=== PATIENT | female | born 1960 | race Caucasian/White ===

== ENCOUNTER 2017-05-07 05:59 | Inpatient (IN) | payer OTHER ==
--- NOTE | 2017-04-30 16:11 | DIAGNOSTIC IMAGING REPORT ---
CHEST 2 VIEWS ROUTINE HISTORY: PREOP COMPARISON: None. FINDINGS: The lungs are clear. Cardiac silhouette is normal in size. No pleural effusions. No pneumothorax. IMPRESSION: No acute process. Electronically signed by: Davon Avealr M.D. 04/30/2017 4:10 PM Dictated Date/Time: 04/30/2017 4:09 PM
[2017-04-30 16:41] LABS: BASO % 0.9 %; BASO ABS # 0.06 K/uL (0-0.2); COMPLETE YES; EOS % 1.2 %; HEMATOCRIT 43.8 % (37-47); IG% 0.4 %; LYMPH % 30.5 %; LYMPH ABS # 2.06 K/uL (1.2-3.4); MEAN CORPUSCULAR HEMOGLOBIN 29.9 pg (25-34); MEAN CORPUSCULAR HGB CONC 33.6 g/dl (32-36); MONO % 8.4 %; NEUT % 58.6 %; PLATELET COUNT 349 K/uL (130-400); RED BLOOD COUNT 4.92 M/uL (4.2-5.4); WHITE BLOOD COUNT 6.76 K/uL (4.8-10.8)
[2017-04-30 16:43] LABS: URINE APPEARANCE CLEAR (CLEAR); URINE BILIRUBIN NEG (NEG); URINE COLOR YELLOW; URINE NITRITE NEG (NEG); URINE PH 5.5 (4.5-7.5); URINE SPECIFIC GRAVITY 1.013 (1.000-1.030); UROBILINOGEN NEG (NEG); ZZUR CULT IF INDIC CLEAN CATCH NO
[2017-04-30 16:56] LABS: MANUAL MICROSCOPIC REQUIRED? NO; REVIEW REQ? NO
[2017-04-30 17:12] LABS: BLOOD UREA NITROGEN 12 mg/dl (7-18); CALCIUM 9.5 mg/dl (8.5-10.1); CARBON DIOXIDE 29 mmol/L (21-32); CHLORIDE 99 mmol/L (98-107); CREATININE 0.64 mg/dl (0.60-1.20); GLUCOSE 92 mg/dl (70-99); POTASSIUM 3.5 mmol/L (3.5-5.1); SODIUM 136 mmol/L (136-145)
[2017-05-05 10:05] VITALS: BMI 33.0
[~2017-05-07] VITALS: Ht 160 cm; Wt 86.4 kg
[2017-05-07] VITALS (17 sets, daily range): BP systolic 118–149; BP diastolic 64–80; PULSE 86–107; TEMP 36.4–37.1; O2SAT 94–100; Ht 160 cm; Wt 86.4 kg
[~2017-05-07 05:59] MED LIST: ALPR-411 PO; ASPI81TA28 PO; FLUO40CA8 PO; NAPR1TAB9 PO; PRLSR20 PO; VALS160T58 PO; VNTHFA/IN INH
[2017-05-07] MEDS ORDERED: CEFAZOLIN 2000MG IV PUSH 10 ML IV SCH (06:00)
[2017-05-07] MEDS ORDERED: LACTATED RINGER'S 1000ML 1,000 ML IV SCH (06:00)
[2017-05-07] MEDS ORDERED: LABETALOL HCL IV 5 MG/ML 20ML IV PRN (06:15)
[2017-05-07] MEDS ORDERED: ONDANSETRON INJ 2 MG/ML 2 ML VIAL IV PRN ×2 (06:15→09:15)
[2017-05-07] MEDS ORDERED: PHENYLEPHRINE 100MCG/ML 5ML SYR IV PRN (06:15)
[2017-05-07] MEDS ORDERED: EpHEDrine SULFATE INJ 50 MG/ML AMP IV PRN (06:15)
[2017-05-07] MEDS ORDERED: ATROPINE SULFATE 0.1 MG/ML 5ML SYR IV PRN (06:15)
[2017-05-07] MEDS ORDERED: HYDROmorphone INJ 1 MG/ML SYR IV PRN ×2 (06:15→11:45)
[2017-05-07] MEDS ORDERED: PROMETHAZINE HCL INJ 12.5 MG in SODIUM CHLORIDE 0.9% 50ML 50 ML IV PRN (06:15)
[2017-05-07] MEDS ORDERED: FENTANYL CITRATE INJ 50 MCG/1 ML 2 ML VIAL ONE ×3 (06:45→08:06)
[2017-05-07] MEDS ORDERED: MIDAZOLAM HCL 1 MG/ML 2ML VIAL ONE (06:45)
[2017-05-07] MEDS ORDERED: BACITRACIN 50000 UNIT VIAL ONE (07:05)
[2017-05-07] MEDS ORDERED: SODIUM CHLORIDE 0.9% PF 50 ML VIAL ONE (07:05)
--- NOTE | 2017-05-07 07:32 | History & Physical Bridge Note ---
H&P Re-Evaluation Bridge Note: I have examined the patient, reviewed the History & Physical and in the interval since the performance of the History & Physical I have noted the following changes of clinical significance: No changes noted
--- NOTE | 2017-05-07 07:33 | History and Physical ---
History & Physical Date May 07, 2017. Chief Complaint Neck and arm pain History of Present Illness The patient is a 56 year old female with complaints of neck and arm pain Additional History Hepatic Disease: No Endocrine Disorder: No Kidney Disease: No Hypertension: No Heart Disease: No Bleeding Tendencies: No Infectious Diseases: No Allergies Coded Allergies: No Known Allergies (Unverified , 05/07/17) Home Medications Scheduled Aspirin (Aspirin Ec), 81 MG PO QAM Fluoxetine (Prozac), 40 MG PO QAM Omeprazole (Prilosec), 20 MG PO QAM Valsartan/Hctz (Diovan Hct 160MG/12.5MG), 1 TAB PO QAM Scheduled PRN Albuterol Hfa (Ventolin Hfa), 2 PUFFS INH Q6H PRN for SOB/Wheezing Alprazolam (Xanax), 0.5 MG PO QAM PRN for Anxiety Naproxen (Aleve), 220 MG PO QAM PRN for Pain Physical Examination Skin: warm/dry, no rash Eyes: normal inspection, EOMI, sclerae normal ENT: normal ENT inspection, pharynx normal Head: normocephalic, atraumatic Neck: supple, no adenopathy, trachea midline Respiratory/Chest: lungs clear, normal breath sounds, no respiratory distress Cardiovascular: regular rate, rhythm, no edema, no murmur Abdomen / GI: normal bowel sounds, non tender Back: normal inspection Extremities: normal inspection, normal range of motion Neurologic/Psych: no motor/sensory deficits, alert, normal reflexes, oriented x 3 Diagnosis Cervical spinal stenosis with myeloradiculopathy Plan of Treatment C6 corpectomy with anterior fusion C5 to C7
[2017-05-07] MEDS ORDERED: HYDROmorphone INJ 2 MG/ML SYR/VIAL ONE (08:06)
[2017-05-07] MEDS ORDERED: FLOSEAL HEMOSTATIC MATRIX 5ML TOP ONE (09:01)
[2017-05-07] MEDS ORDERED: NALOXONE HCL 0.4 MG/1 ML VIAL/CARP IV PRN (09:15)
[2017-05-07] MEDS ORDERED: LORAZEPAM INJ 0.5 MG in SYRINGE 0.75 ML IV PRN (09:15)
[2017-05-07] MEDS ORDERED: DiphenhydrAMINE HCL 50 MG/ML VIAL IV PRN (09:15)
[2017-05-07] MEDS ORDERED: DO NOT ADMINISTER PNEUMOCOCCAL VACCINE PRN ×2 (09:15)
[2017-05-07] MEDS ORDERED: DO NOT ADMINISTER FLU VACCINE PRN ×3 (09:15)
[2017-05-07] MEDS ORDERED: DEXAMETHASONE INJ 8 MG in SYRINGE 0 ML IV PRN (09:15)
[2017-05-07] MEDS ORDERED: ALPRAZOLAM 0.5 MG TAB PO PRN (09:15)
[2017-05-07] MEDS ORDERED: MAGNESIUM HYDROXIDE SUSP 30 ML UDC PO PRN (09:15)
[2017-05-07] MEDS ORDERED: RACEPINEPHRINE 2.25% NEBU SOLN 0.5 ML VIAL INH PRN (09:15)
[2017-05-07] MEDS ORDERED: ALBUTEROL HFA 8 GM INHALER INH PRN (09:15)
[2017-05-07] MEDS ORDERED: LORAZEPAM 0.5 MG TAB PO PRN (09:15)
--- NOTE | 2017-05-07 09:16 | [facility] Operative Report ---
Operative Report Operative Date May 07, 2017. Pre-Operative Diagnosis Cervical spinal stenosis with myeloradiculopathy Post-Operative Diagnosis Cervical spinal stenosis with myeloradiculopathy Procedure(s) Performed #1 anterior cervical corpectomy C6. #2 anterior cervical arthrodesis C5 to C7. #3 placement peek cage 23 mm in height C5 to C7. Placement locally harvested morcellized autograft combined with ostial amp bone graft in the interbody construct. #5. Application of benitez plate and screws from C5 to C7. Surgeon Dr. Julio C Munoz Sample Selector Surgeon(s) Xiomara Lucio PA-C Estimated Blood Loss 20mL Findings Severe spinal stenosis Specimens None per surgeon Description of Procedure Patient was met with preoperatively case discussed all questions addressed. After informed consent obtained patient was taken operative suite underwent intubation placed in a supine position the Shlomo table head in [place] headholder. All bony prominences were well-padded eyes inspected to ensure there is no external pressure placed upon them. At this point the anterior cervical spine was prepped draped nostril fashion. With the assistance of fluoroscopy identified the see 6 vertebral body. Then performed a complete discectomy of C5 6 out to the uncovertebral joints bilaterally followed by C6 7. [place] distracting pins were then placed in C5 and C7 to distract across the C6 vertebral body. Complete corpectomies and performed including removal of all posterior annular fibers and longitudinal ligament and bilateral foraminotomies. After complete decompression endplates were burred to subcortical bleeding bone and a 23 mm peek cage filled with locally harvested morcellized autograft and ostial amp bone graft tapped in position. Distracting apparatus was removed. Benitez plate screws was then applied with the assistance of fluoroscopy. Incision was in copious irrigated explored to ensure there is no damage to surrounding structures remaining bleeding. 10 round RODDY drain inserted. Incision was then closed with 2 Vicryl in the fascia for Monocryl for final skin closure Steri-Strips sterile dressings placed. Patient we can take PACU stable condition. Please note Xiomara Michael was present throughout the entire procedure involved in patient positioning complex portions of the surgery and final skin closure. I attest to the content of the Intraoperative Record and any orders documented therein. Any exceptions are noted below.
--- NOTE | 2017-05-07 09:22 | DIAGNOSTIC IMAGING REPORT ---
INTRAOPERATIVE CERVICAL SPINE 4 VIEWS CLINICAL HISTORY: C6 corpectomy COMPARISON STUDY: No previous studies for comparison. FINDINGS: 13 seconds of fluoroscopic time was utilized. 4 intraoperative fluoroscopic spot images are provided for interpretation. There is limited visualization given the intraoperative fluoroscopic spot technique. The patient appears to be status post a C6 corpectomy with an anterior metallic plate with screws at the C5 and C7 levels. There is an overlying surgical drain. IMPRESSION: Postsurgical changes as described above. Electronically signed by: Kit Trinidad M.D. 05/07/2017 9:20 AM Dictated Date/Time: 05/07/2017 9:19 AM
[2017-05-07] MEDS: FENTANYL CITRATE INJ 50 MCG/1 ML 2 ML VIAL IV PRN ×2 (09:46→09:50)
--- NOTE | 2017-05-07 10:46 | Anesthesiology Progress Note ---
Anesthesia Post Op Note Date & Time May 07, 2017 at 10:46 Vital Signs Pain Intensity: 2 Vital Signs Past 12 Hours Date Time Temp Pulse Resp B/P (MAP) Pulse Ox O2 Delivery O2 Flow Rate FiO2 05/07/17 10:30 36.6 90 14 122/66 98 Nasal Cannula 3 05/07/17 10:20 85 15 133/65 98 Nasal Cannula 3 05/07/17 10:10 79 15 120/74 97 Nasal Cannula 3 05/07/17 10:00 86 14 135/70 97 Nasal Cannula 3 05/07/17 09:50 81 14 124/66 99 Oxymask 3 05/07/17 09:40 83 15 137/72 99 Oxymask 5 05/07/17 09:30 81 14 137/71 100 Oxymask 10 05/07/17 09:22 36.4 93 14 144/56 98 Oxymask 10 05/07/17 06:46 36.4 86 18 118/64 96 Room Air Notes Mental Status: alert / awake / arousable, participated in evaluation Pt Amnestic to Procedure: Yes Nausea / Vomiting: adequately controlled Pain: adequately controlled Airway Patency, RR, SpO2: stable & adequate BP & HR: stable & adequate Hydration State: stable & adequate Anesthetic Complications: no major complications apparent
[2017-05-07] MEDS: HYDROmorphone INJ 0.5 MG/0.5 ML SYR IV PRN ×3 (11:58→22:44)
[2017-05-07] MEDS: LACTATED RINGER'S 1000ML 1,000 ML IV SCH (11:58)
[2017-05-07] MEDS ORDERED: SCOPOLAMINE 1.5 MG TDSY TD SCH (12:00)
[2017-05-07] MEDS ORDERED: DEXAMETHASONE SOD INJ 4 MG/ML VIAL ONE (12:11)
[2017-05-07] MEDS ORDERED: ROCURONIUM BROMIDE 10 MG/ML 5 ML VIAL IV ONE (12:11)
[2017-05-07] MEDS ORDERED: LIDOCAINE HCL 2% 2 ML VIAL (20MG/ML) ONE (12:11)
[2017-05-07] MEDS ORDERED: NEOSTIGMINE METHYLSULFATE 1 MG/ML 10ML VIAL ONE (12:11)
[2017-05-07] MEDS ORDERED: ONDANSETRON INJ 2 MG/ML 2 ML VIAL ONE (12:11)
[2017-05-07] MEDS ORDERED: PROPOFOL IV EMULSION 10 MG/ML 20 ML VIAL IV ONE (12:11)
[2017-05-07] MEDS ORDERED: GLYCOPYRROLATE INJ 0.2 MG/ML VIAL ONE (12:11)
[2017-05-07] MEDS: DEXAMETHASONE INJ 6 MG in SYRINGE 0 ML IV SCH ×2 (12:34→20:09)
[2017-05-07] MEDS: CHECK SCOPOLAMINE PATCH PLACEMENT SCH ×2 (15:58→23:59)
[2017-05-07] MEDS: CEFAZOLIN IV 2,000 MG in SYRINGE 0 ML IV SCH ×2 (16:02→23:57)
[2017-05-07] MEDS: OXYCODONE HCL IR 5 MG TAB (IMMEDIATE RELEASE) PO PRN ×2 (16:55→20:49)
[2017-05-07] MEDS: DOCUSATE SODIUM 100 MG CAP PO SCH (20:49)
[2017-05-08] VITALS (17 sets, daily range): BP systolic 111–169; BP diastolic 66–89; PULSE 81–103; TEMP 36.6–37.1; O2SAT 91–97
[2017-05-08] MEDS: ACETAMINOPHEN IV 100 ML IV PRN ×2 (01:09→09:10)
[2017-05-08] MEDS: LACTATED RINGER'S 1000ML 1,000 ML IV SCH (02:51)
[2017-05-08] MEDS: DEXAMETHASONE INJ 6 MG in SYRINGE 0 ML IV SCH (04:00)
[2017-05-08] MEDS: HYDROmorphone INJ 0.5 MG/0.5 ML SYR IV PRN (06:43)
[2017-05-08] MEDS: CHECK SCOPOLAMINE PATCH PLACEMENT SCH ×2 (07:42→15:59)
[2017-05-08] MEDS: CEFAZOLIN IV 2,000 MG in SYRINGE 0 ML IV SCH (07:42)
[2017-05-08] MEDS: OXYCODONE HCL IR 5 MG TAB (IMMEDIATE RELEASE) PO PRN ×2 (07:43→13:54)
[2017-05-08] MEDS: DOCUSATE SODIUM 100 MG CAP PO SCH (08:46)
[2017-05-08] MEDS ORDERED: HYDROCHLOROTHIAZIDE 25 MG TAB PO SCH (09:00)
[2017-05-08] MEDS ORDERED: VALSARTAN/HCTZ 160/12.5 MG TAB PO SCH (09:00)
[2017-05-08] MEDS ORDERED: PANTOprazole SOD 40 MG TAB PO SCH (09:00)
[2017-05-08] MEDS ORDERED: FLUOXETINE HCL 20 MG CAP PO SCH (09:00)
[2017-05-08] MEDS ORDERED: VALSARTAN 80 MG TAB PO SCH (09:00)
[2017-05-08] MEDS ORDERED: RXC5 PO (12:02)
--- NOTE | 2017-05-08 12:03 | Discharge Instructions ---
Discharge Instructions Date of Service May 08, 2017. Admission Reason for Admission: Cervical Spinal Stenosis Discharge Discharge Diagnosis / Problem: cervical stenosis Discharge Goals Goal(s): Improve function Activity Recommendations Activity Limitations: per Instructions/Follow-up section . Instructions / Follow-Up Instructions / Follow-Up ACTIVITY RECOMMENDATIONS: SELF CARE INSTRUCTIONS AFTER CERVICAL FUSIONS 1. No smoking. Smoking drastically decreases the chance of a solid fusion. 2. No bending, lifting more than 5 pounds, or twisting (roll like a log when turning in bed). 3. You may shower 3 days after surgery. Thoroughly dry wound. Do not soak in the tub. 4. Cervical collar: Must be worn at all times including sleeping. You may remove the brace only to bath, eat and if you are sitting in a recliner. 5. Please walk as much as you can for exercise. Gradually increase the distance that you walk as your endurance increases. SPECIAL CARE INSTRUCTIONS: VERY IMPORTANT TO READ AND REVIEW A. Do not take any anti-inflammatory medications (i.e. Indocin, Advil, Aspirin, Naprosyn, Aleve, Motrin, etc.) as these may inhibit the chance of a solid fusion. Tylenol is okay to take. B. Your surgical incision has been closed with a cosmetic suture under the skin that will dissolve in about 6 weeks. In 14 days, you can use a pair of clean scissors and cut the suture that is left outside of the skin at the ends of your incision. C. Complications are uncommon, but please contact us if you have any signs or symptoms of: 1. wound infection (fever higher than 102.5 degrees F, redness, separation of wound, drainage, or increasing pain from the incision) 2. blood clots in legs (pain, swelling, redness and warmth in legs) 3. urinary tract infection (fever higher than 102.5 degrees, burning upon urination or increased frequency of urination) 4. nerve problems (inability to walk on your toes or heels, numbness, loss of bowel or bladder control) 5. any other symptoms that concern you. D. Please call the office at if you have any concerns or questions about your operation or recovery. MANAGING PAIN AFTER SPINAL SURGERY 1. Narcotic medication is intended for short-term use and will be provided for surgical pain. Surgical pain usually lasts for a period of 4-6 weeks. Narcotic medication includes Percocet, Vicodin, Darvocet, Tylenol #3 or Lortab. 2. Longer-term pain is more appropriately treated with non-narcotic medication such as Tylenol ES. 3. Muscle spasm is not appropriately treated with narcotics. Muscle relaxers such as Soma, Flexeril or Skelaxin can be used along with Tylenol ES. 4. Remember that we all live with some "aches and pains". This is not unusual or uncommon after an injury or as we get older. 5. We will provide appropriate medication within the normal guidelines of their prescribed use. We will also be very cautious and aware of potential abuse and extended duration of patients' medication needs. 6. Please allow 2-3 days to process refills. Prescriptions will not be mailed but must be picked up at the office. FOLLOW UP VISIT: Keep your scheduled follow-up appointment. Any questions, please call the office at . Current Hospital Diet Patient's current hospital diet: Regular Diet Discharge Diet Recommended Diet: Regular Diet Procedures Procedures Performed: #1 anterior cervical corpectomy C6. #2 anterior cervical arthrodesis C5 to C7. #3 placement peek cage 23 mm in height C5 to C7. Placement locally harvested morcellized autograft combined with ostial amp bone graft in the interbody construct. #5. Application of pressley plate and screws from C5 to C7. Pending Studies Studies pending at discharge: no Medical Emergencies . Who to Call and When: Medical Emergencies: If at any time you feel your situation is an emergency, please call 911 immediately. . Non-Emergent Contact Non-Emergency issues call your: Primary Care Provider . "Provider Documentation" section prepared by Julio C Munoz. . VTE Core Measure Inpt VTE Proph given/why not?: Ovi Roberts, SCD's
[2017-05-08] MEDS ORDERED: COUGH DROP (SUGAR FREE) LOZ 24 LOZ/1 BOX ONE (13:52)
[2017-05-08] MEDS ORDERED: NURSING VERBAL MED ORDER ONE (15:15)
[2017-05-08] MEDS ORDERED: COUGH DROP (SUGAR FREE) LOZ 24 LOZ/1 BOX PO PRN (15:30)
[2017-05-09] MEDS ORDERED: BISACODYL 5 MG TABEC PO PRN (06:00)
[2017-05-09] MEDS ORDERED: BISACODYL 10 MG SUPP PR PRN (06:00)
[2017-05-09] MEDS ORDERED: POLYETHYLENE (MIRALAX) 17 GM PACK PO SCH (09:00)
--- NOTE | 2017-05-09 10:02 | Discharge Summary ---
Orthopedic Discharge Summary Admission Date/Reason May 07, 2017 at 07:30 Cervical Spinal Stenosis. Discharge Date/Disposition May 08, 2017 Home Diagnosis Principal Diagnosis: Cervical spinal stenosis Admission Physical Exam As per Admitting History & Physical. Hospital Course Patient underwent anterior cervical corpectomy and fusion tolerated this well as taken to the orthopedic floor postoperatively. Postoperatively she was up and amatory swallowing well no hoarseness arm symptoms improved and subsequently discharged home. Discharge orders and instructions found on the chart for further review. Discharge Instructions Please refer to the electronic Patient Visit Report (Discharge Instructions) for additional information.
== END 2017-05-08 17:20 | disposition home or self-care (01) | DRG 473 ==
LOC: C.ACU 05:59 → C.3E 07:30 → ENRESERV 10:17
PROVIDERS: ADMIT Orthopaedic Surgery Orthopaedic Surgery of the Spine; ATTEND Orthopaedic Surgery Orthopaedic Surgery of the Spine
PROC: 0RG20K0 Fusion of 2 or more Cervical Vertebral Joints with Nonautologous Tissue Substitute, Anterior Approach, Anterior Column, Open Approach (ICD-10-PCS; principal; 2017-05-07 07:30)
PROC: 0RG20J0 Fusion of 2 or more Cervical Vertebral Joints with Synthetic Substitute, Anterior Approach, Anterior Column, Open Approach (ICD-10-PCS; principal; 2017-05-07 07:30)
DX: M48.02 Spinal stenosis, cervical region (principal); Z79.82 Long term (current) use of aspirin